=== PATIENT | female | born 1985 | race Caucasian/White ===

== ENCOUNTER 2024-03-04 08:39 | Emergency (ER) | payer OTHER, SELFPAY ==
--- NOTE | ~2024-03-04 | CT_ITS ---
EXAMINATION: CT abdomen pelvis w con DATE: 03/04/2024 13:21 INDICATION: Left lower quadrant abdominal pain TECHNIQUE: Computed tomography (CT) of the abdomen and pelvis was performed with 100 mL Omnipaque-350 intravenous contrast. Automated exposure control and iterative reconstruction technique were employe d. The dose-length product was 337.96 mGy-cm. COMPARISON: None FINDINGS: Visualized lower lungs are clear. Heart size is normal. No pericardial or pleural effusion. Liver, ga llbladder, spleen, pancreas, bilateral adrenal glands and kidneys are normal. Bladder and retroverted uterus are normal. 1.6 cm peripherally enhancing corpus luteum cyst at the right ovary. Left ovary i s unremarkable. Small amount of fluid in the proximal colon consistent with nonspecific diarrhea. No bowel obstruction or abnormal wall thickening. The appendix is not visualized. No pericecal inflammat ory change to suggest acute appendicitis. No free intraperitoneal gas or fluid. No pathologically enl arged abdominal/pelvic lymphadenopathy. Small cirrhotic bone island at the intratrochanteric right fe mur. Mild thoracolumbar dextrocurvature. IMPRESSION: 1. Fluid in the proximal colon consistent with nonspecific diarrhea. No other acute intra-abdominal/p elvic process. Reviewed, dictated and finalized at location A. [employer] MACHINE OPERATOR IMPRESSION: 1. Fluid in the proximal colon consistent with nonspecific diarrhea. No other a cute intra-abdominal/pelvic process.
[2024-03-04 08:42] VITALS: BP 123/84; PULSE 103; RESP 15; TEMP 36.3; O2SAT 100
[2024-03-04 08:58] VITALS: BP 125/96; PULSE 99; RESP 16; O2SAT 99
[2024-03-04 09:05] LABS: Basophils Absolute Auto 0.1 K/mm3 (0.0-0.1); Basophils Percent Auto 0.5 % (0.2-1.2); Eosinophils Absolute Auto 0.1 K/mm3 (0-0.3); Eosinophils Percent Auto 1.4 % (0-4.4); Hemoglobin 15.1 g/dL (12.0-15.0); Immature Granulocyte Absolute 0.03 K/mm3 (0.00-0.031); Immature Granulocyte Percent A 0.3 % (0-0.5); Lymphocytes Percent Auto 16.8 % (18.3-44.2); Mean Corpuscular HGB Conc 34.3 g/dl (32-36); Mean Corpuscular Hemoglobin 30.9 pg (26-34); Mean Platelet Volume 9.9 fl (7.4-10.4); Monocytes Absolute Auto 1.1 K/mm3 (0.1-0.6); Monocytes Percent Auto 10.8 % (2.6-8.5); Neutrophils Absolute Auto 7.1 K/mm3 (1.3-6.7); Neutrophils Percent Auto 70.2 % (45.5-73.1); Platelet Count Result 403 k/mm3 (150-375); Red Blood Count 4.89 M/mm3 (4.2-5.4); Red Cell Distribution Width 13.2 % (11.5-14.5); White Blood Count 10.1 K/mm3 (4.5-10.0)
[2024-03-04 09:08] LABS: BEDSIDEPREGUCG Negative (Negative)
[2024-03-04 09:17] LABS: Alanine Aminotransferase 19 U/L (6-35); Albumin Level 4.8 g/dL (3.5-5.1); Alkaline Phosphatase 79 U/L (38-126); Anion Gap 14 mmol/L (4-12); Aspartate Amino Transferase 32 U/L (14-36); Bilirubin,Total 0.5 mg/dL (0.2-1.3); Blood Urea Nitrogen 29 mg/dL (7-17); Calcium 9.4 mg/dL (8.4-10.2); Carbon Dioxide 22 mmol/L (22-30); Chloride 100 mmol/L (98-107); Estimated CRCL calculation 65 ml/min; Estimated Glomerular Filt Rate 58; Glucose 95 mg/dL (65-110); Lipase 39 U/L (23-300); Potassium 3.9 mmol/L (3.4-5.0); Sodium 136 mmol/L (137-145)
[2024-03-04 09:26] LABS: Add Urine Microscopic? YES; Appearance Urine Turbid (Clear); Bacteria Urine 4+ /hpf; Bilirubin Urine Negative (Negative); Blood Urine 2+ (Negative); Color Urine Dark Yellow (Yellow); Glucose Urine UA Negative (Negative); Ketones Urine Trace mg/dL (Negative); Leukocyte Esterase Ur 2+ LEU/UL (Negative); Need Manual Microscopic Reviewed; Nitrate Urine Negative (Negative); Non Pathogenic Casts >20; Protein Urine 2+ mg/dL (Negative); Specific Grav Ur 1.029 (1.001-1.035); Squamous Epithelial Cell Urine Many /hpf (Few); Urobilinogen Urine 0.2 mg/dL (<2.0); WBC Urine >100 /hpf (0-3); pH Urine 5.5 (5.0-9.0)
[2024-03-04] MEDS: SODIUM CHLORIDE 0.9% IV 2,000 ML 999 ML IV CONT (10:11)
[2024-03-04] MEDS: ONDANSETRON INJ 4 MG/2 ML VIAL IV PUSH (10:12)
[2024-03-04] MEDS: diazePAM INJ (*CRX) 10 MG/2 ML SYRINGE 5 MG IV PUSH (10:14)
[2024-03-04] MEDS: KETOROLAC 15 MG/ML VIAL (*BKC) IV PUSH (10:17)
[2024-03-04 10:19] VITALS: BP 132/86; PULSE 93; RESP 13; O2SAT 100
[2024-03-04 10:54] LABS: Influenza A QL RT-PCR Negative (Negative); Influenza B QL RT-PCR Negative (Negative); RSV RNA, RT-PCR Negative (Negative); SARS-CoV-2 RNA PCR Negative (Negative)
--- NOTE | 2024-03-04 13:39 | ED.GENADULT ---
HPI - General Adult General Chief complaint: Nausea/Vomiting/Diarrhea Stated complaint: N/V/D abd pain Time Seen by Provider: 03/04/24 09:05 History of Present Illness HPI narrative: This is a 38-year-old female presenting ED with chief complaint of nausea vomiting diarrhea. It has been ongoing for 3 days. Associated with left lower quadrant abdominal pain. Patient did have an episode of lightheadedness but has not lost consciousness. Denies fevers chills chest pain difficulty breathing or sick contacts. Related Data Allergies Allergy/AdvReac Type Severity Reaction Status Date / Time No Known Allergies Allergy Verified 03/04/24 08:58 Exam Narrative: APPEARANCE: Patient is well-appearing but extremely anxious Head: atraumatic. EYES: EOMI, NOSE: Atraumatic NECK: Trachea midline RESPIRATORY: No increased rate of breathing clear to auscultation CARDIOVASCULAR: RRR, clear to auscultation ABDOMINAL: Soft nontender no guarding rebound, reported tenderness in left lower quadrant MUSCULOSKELETAl: No obvious deformities NEURO: Alert. Moving 4/4 extremities SKIN:: Warm, dry. Normal color PSYCHIATRIC: Normal affect Course Vital Signs Vital signs: Vital Signs Temperature 97.3 F L 03/04/24 08:42 Pulse Rate 103 H 03/04/24 08:42 Respiratory Rate 15 03/04/24 08:42 Blood Pressure 123/84 03/04/24 08:42 Pulse Oximetry 100 03/04/24 08:42 Oxygen Delivery Room Air 03/04/24 08:42 Temperature 97.3 F L 03/04/24 08:42 Pulse Rate 93 03/04/24 10:19 Respiratory Rate 13 03/04/24 10:19 Blood Pressure 132/86 03/04/24 10:19 Pulse Oximetry 100 03/04/24 10:19 Oxygen Delivery Room Air 03/04/24 08:42 Medical Decision Making [facility] Narrative Medical decision making narrative: -Course: 38-year-old female presenting with nausea vomiting diarrhea. Laboratory studies within expected limits. CT showed nonspecific diarrheal illness. Urine did have greater than 100 white blood cells and +2 leuk esterase. Patient be treated for UTI. Patient discharged with antiemetics and antibiotics. Given return precautions. -DDX includes but is not limited to: Gastroenteritis, colitis, diverticulitis, urinary tract infection, appendicitis -Co-morbidities complicating care: Anxiety -Independent interpretation of studies: Labs imaging reviewed -Interventions: 2 L normal saline, Zofran, Keflex -Shared decision making / Disposition: Discharge -RX cephalexin 500 mg b.i.d. x5 Vital Signs Vital Signs: Vital Signs Temperature 97.3 F L 03/04/24 08:42 Pulse Rate 103 H 03/04/24 08:42 Respiratory Rate 15 03/04/24 08:42 Blood Pressure 123/84 03/04/24 08:42 Pulse Oximetry 100 03/04/24 08:42 Oxygen Delivery Room Air 03/04/24 08:42 Temperature 97.3 F L 03/04/24 08:42 Pulse Rate 93 03/04/24 10:19 Respiratory Rate 13 03/04/24 10:19 Blood Pressure 132/86 03/04/24 10:19 Pulse Oximetry 100 03/04/24 10:19 Oxygen Delivery Room Air 03/04/24 08:42 Lab Data 03/04/24 08:59 03/04/24 08:59 Labs: Lab Results 03/04/24 03/04/24 03/04/24 Range/Units 08:59 09:06 10:11 WBC 10.1 H (4.5-10.0) K/mm3 RBC 4.89 (4.2-5.4) M/mm3 Hgb 15.1 H (12.0-15.0) g/dL Hct 44.0 (37.0-47.0) % MCV 90.0 (80-100) fl MCH 30.9 (26-34) pg MCHC 34.3 (32-36) g/dl RDW 13.2 (11.5-14.5) % Plt Count 403 H (150-375) k/mm3 MPV 9.9 (7.4-10.4) fl Immature Gran % (Auto) 0.3 (0-0.5) % Neut % (Auto) 70.2 (45.5-73.1) % Lymph % (Auto) 16.8 L (18.3-44.2) % [place] % (Auto) 10.8 H (2.6-8.5) % Eos % (Auto) 1.4 (0-4.4) % Baso % (Auto) 0.5 (0.2-1.2) % Lymph # (Auto) 1.70 (0.9-3.2) K/mm3 [place] # (Auto) 1.1 H (0.1-0.6) K/mm3 Eos # (Auto) 0.1 (0-0.3) K/mm3 Baso # (Auto) 0.1 (0.0-0.1) K/mm3 Abs Immat Gran (auto) 0.03 (0.00-0.031) K/mm3 Absolute Neuts (auto) 7.1 H (1.3-6.7) K/mm3 Absolute Nucleated RBC 0.000 (0.0-0.012) K/mm3 Nucleated RBC % 0.0 (0.0-0.2) % Sodium 136 L (137-145) mmol/L Potassium 3.9 (3.4-5.0) mmol/L Chloride 100 (98-107) mmol/L Carbon Dioxide 22 (22-30) mmol/L Anion Gap 14 H (4-12) mmol/L BUN 29 H (7-17) mg/dL Creatinine 1.06 H (0.7-1.0) mg/dL Estim Creat Clear Calc 65 ml/min Estimated GFR 58 L (59 - ) Glucose 95 (65-110) mg/dL Calcium 9.4 (8.4-10.2) mg/dL Total Bilirubin 0.5 (0.2-1.3) mg/dL AST 32 (14-36) U/L ALT 19 (6-35) U/L Alkaline Phosphatase 79 (38-126) U/L Total Protein 9.0 H (6.3-8.2) g/dL Albumin 4.8 (3.5-5.1) g/dL Lipase 39 (23-300) U/L Urine Color Dark yellow (Yellow) Urine Appearance Turbid H (Clear) Urine pH 5.5 (5.0-9.0) Ur Specific [place] 1.029 (1.001-1.035) Urine Protein 2+ H (Negative) mg/dL Urine Glucose (UA) Negative (Negative) mg/dL Urine Ketones Trace H (Negative) mg/dL Ur Blood (Man) 2+ H (Negative) Urine Nitrate Negative (Negative) Urine Bilirubin Negative (Negative) Urine Urobilinogen 0.2 (<2.0) mg/dL Add Ur Microanalysis Reviewed Leukocyte Esterase Rfl 2+ H (Negative) NATALIIA/UL Urine RBC 11-20 H (0-2) /hpf Urine WBC >100 H (0-3) /hpf Ur Squamous Epith Cells Many H (Few) /hpf Urine Bacteria 4+ H /hpf Urine Casts >20 POC Urine HCG, Qual Negative (Negative) Influenza A (RT-PCR) Negative (Negative) Influenza B (RT-PCR) Negative (Negative) RSV (RT-PCR) Negative (Negative) SARS-CoV-2 RNA (RT-PCR) Negative (Negative) Discharge Plan Discharge Clinical Impression: UTI (urinary tract infection), Nausea and vomiting, Diarrhea Patient Disposition: Home, Self-Care Condition: Stable Instructions: Antibiotic Form, Urinary Tract Infection in Women (DC), Gastroenteritis (ED) Additional Instructions: Please take Zofran as needed for nausea. Please complete the course of antibiotics for urinary tract infection. Return to ED if you develop fevers severe abdominal pain or intractable nausea vomiting. Patient Language: Persian Prescriptions: New cephalexin 500 mg capsule 500 mg PO Q12H Qty: 14 0RF ondansetron 4 mg tablet,disintegrating 4 mg PO Q8H PRN (Reason: nausea and vomiting) Qty: 30 0RF Follow-up/Referrals: PHYSICIAN,[employer]ASTIC TOP ASSEMBLER [Primary Care Provider] -
[2024-03-04] MEDS: CEPHALEXIN 500 MG CAPSULE PO (14:03)
[2024-03-04 14:13] VITALS: BP 118/62; PULSE 92; RESP 17; TEMP 36.5; O2SAT 100
== END 2024-03-04 14:15 | disposition home or self-care (01) ==
PROVIDERS: Emergency Provider Emergency Medicine
DX: N39.0 Urinary tract infection, site not specified (principal); R11.2 Nausea with vomiting, unspecified; R19.7 Diarrhea, unspecified; Z20.822 Contact with and (suspected) exposure to COVID-19
CPT/HCPCS: 36415; 74177; 80053; 81001; 81025; 83690; 85025; 87637; 96361; 96374; 96375; 99284; A9270; J1885; J2405; J3360; J7030; Q9967